=== PATIENT | male | born 1965 | race Caucasian/White ===

== ENCOUNTER → 2024-06-26 13:10 | Outpatient (REF) | payer OTHER, SELFPAY | LOC: RAD 13:10 | PROVIDERS: ATTENDING PHYSICIAN Nurse Practitioner; FAMILY PHYSICIAN Nurse Practitioner | DX: R10.30 Lower abdominal pain, unspecified (principal) | CPT/HCPCS: 74177; Q9967 ==

== ENCOUNTER 2025-03-01 09:36 | Emergency (ER) | payer OTHER, SELFPAY ==
[2025-03-01 09:38] VITALS: BP 134/93
--- NOTE | 2025-03-01 11:21 | ED.SKININJ ---
HPI-Injury
General
Chief Complaint: Skin Surface Trauma
Source: patient
Exam Limitations: none
Time Seen by Provider: 03/01/25 10:47
History of Present Illness-Injury
Initial Injury comments:
60-year-old [id number] male presents complaining of crushing injury to right long finger he sustained today. He pinched it between 2 pieces of heavy metal. Last tetanus unknown. He notes the back of the nail came out. He notes a
laceration.
Past History
Past History
ED Past Medical History: None
ED Past Surgical History: None
Social History
Tobacco: Non-smoker
Alcohol: Occasional
Drug: None
Personal:
Living: with family
Employment: Employed
Family History
Family History: CAD
Phy Exam
Physical Exam
Physical Exam:
General: Well-appearing male no acute distress
Musculoskeletal exam: Right long finger tender over the distal portion. The base of the nail is avulsed. There is a laceration measures about 1.5 cm over the volar aspect of the finger without tendon involvement
Course
Orders/Labs/Results
Orders:
Orders
03/01/25 09:41
Finger(s)/Thumb 2 View Rt [CR Finger(s)/thumb Min 2 Vw Rt] Urgent
Comment:
Reason For Exam: crush injury
Indicate Which Finger:: Middle Finger
03/01/25 11:07
Tetanus/Diphth/Acelpertussis [Adacel] 0.5 ml IM .ONCE ONE
Vital Signs
Initial and Last Documented VS:
Initial Vital Signs
Temp Pulse Resp BP Pulse Ox
97.7 F 68 18 134/93 97
03/01/25 09:38 03/01/25 09:38 03/01/25 09:38 03/01/25 09:38 03/01/25 09:38
Last Documented Vital Signs
Temp Pulse Resp BP Pulse Ox
97.7 F 68 18 134/93 97
03/01/25 09:38 03/01/25 09:38 03/01/25 09:38 03/01/25 09:38 03/01/25 11:24
MDM/Problems Addressed
Differential Diagnosis Includes:
Crush injury right long finger. X-rays were personally visualized and are negative for fracture. The nail is avulsed there is a laceration. Digital block was provided at the base of the finger and the finger was soaked with saline and Betadine
*Pulse Oximetry
SaO2: 97
Oxygen Mode of Delivery: Room air
Patient hypoxic: no
*Critical Care Note
Total Time (30-74mins, 75-104mins- exclusive of procedures): Not Applicable
Update Note
Update Note:
After appropriate anesthesia was obtained with a digital block and the finger was soaked with saline and Betadine, the finger was then irrigated copiously with saline. The laceration was closed with 5-0 Prolene sutures in a simple interrupted
fashion. 5 sutures were required to do so. The base of the nail was tucked back into its original position and the finger was wrapped with wrap and splint. He will be advised to follow-up with hand specialist for further evaluation
ED Attending Note
-
Portions of this chart may have been created with voice recognition software.� Occasional wrong word or��sound alike� substitutions may have occurred due to the inherent limitations of voice recognition software.
Discharge Plan
Departure
Patient Disposition: Home (Routine Discharge)
Date of Disposition: 03/01/25
Time of Disposition: 12:00
Patient with high blood pressure during this ER visit?: No
Discharge Problem:
Crush injury to finger
Instructions: Laceration Repair With Stitches (DC)
Prescriptions:
No Action
dicyclomine [Bentyl] 20 MG tablet
20 mg PO Q8 PRN (Reason: cramping) Qty: 9 0RF
Referrals:
Irish Dick CRNP [Family Provider, Family Practice]
Nain Cain MD [Active, Orthopedics]
Activity Restrictions/Additional Instructions:
Have sutures removed in 10 to 14 days. Avoid heavy lifting with this hand. Follow-up with hand specialist. Return if needed otherwise
Interventions
Interventions:
*Risk Screen - Suicide Last Done: 03/01/25 09:38
*General Assessment Last Done: 03/01/25 09:38
*Neglect/Abuse Screening Last Done: 03/01/25 11:45
*ED- Fall Risk Assessment Last Done: 03/01/25 11:45
*ED COVID-19 Vaccine History Last Done: 03/01/25 11:45
*ED Influenza Vaccine History Last Done: 03/01/25 11:45
ED-Skin Assessment Last Done: 03/01/25 11:45
Discharge Date and Time
Print Language: [place] ISLAND[place]
[2025-03-01] MEDS: ADACEL 0.5 ML IM (11:58)
== END 2025-03-01 13:01 | disposition home or self-care (01) ==
LOC: EMR 09:36
PROVIDERS: EMERGENCY PHYSICIAN Emergency Medicine; FAMILY PHYSICIAN Nurse Practitioner
DX: S67.192A Crushing injury of right middle finger, initial encounter (principal); S61.212A Laceration without foreign body of right middle finger without damage to nail, initial encounter; W23.0XXA Caught, crushed, jammed, or pinched between moving objects, initial encounter; Z23 Encounter for immunization
CPT/HCPCS: 12001; 99283; 90471; 73140; 90715

== ENCOUNTER 2025-03-07 05:31 | Emergency (ER) | payer OTHER, SELFPAY ==
[2025-03-07 05:36] VITALS: BP 133/81
[2025-03-07 06:08] LABS: Hematocrit 41.0 % (39.0-52.0); Hemoglobin 13.8 g/dL (13.0-18.0); Mean Corp Hgb Conc. 33.7 g/dL (33.0-37.0); Mean Corpuscular Volume 86.1 fL (80.0-94.0); Nucleated Red Blood Cells % 0 % (-); Platelet Count 157 10^3/uL (130-400); Red Cell Dist. Width 12.6 % (11.5-14.5)
[2025-03-07 06:19] LABS: ALT (SGPT) 17 U/L (0-50); AST (SGOT) 33 U/L (17-59); Albumin 4.3 g/dl (3.5-5.0); Alkaline Phosphatase 54 U/L (38-126); Blood Urea Nitrogen 23 mg/dl (9-20); Calcium 9.0 mg/dl (8.4-10.2); Carbon Dioxide 25 mmol/L (22-30); Chloride 107 mmol/L (98-107); Glucose 118 mg/dl (70-99); Potassium 4.3 mmol/L (3.5-5.1); Sodium 138 mmol/L (135-145); Total Protein 6.9 g/dl (6.3-8.2); eGFR > 60.00
--- NOTE | 2025-03-07 06:36 | ED.GENMED ---
Addendum entered and electronically signed by Marissa Young PA-C 03/10/25 15:14:
Wound abscess positive for few Staph aureus preliminarily, patient is on oral vancomycin, no treatment change required at this point
Original Note:
History of Present Illness
General
Chief Complaint: Skin Problem
Time Seen by Provider: 03/07/25 06:36
History of Present Illness
History of Present Illness:
FOCUSED PAST MEDICAL HISTORY
- Anxiety
REVIEW OF OLD RECORDS
- The patient was seen here on 03/01/2025 after crush injury to the right middle finger and had laceration repair; at that time there is no definite fracture
- CAT scan in June 2024 showed pancolitis related to C. difficile
Note:
CHIEF COMPLAINT(S)
Eruption and possible infection at the site of a previous nail injury.
HISTORY OF PRESENT ILLNESS
The patient is a 60-year-old male who was initially evaluated on the of the month for a nail injury, at which time the wound was cleaned, and the nail was repositioned with no fracture evident on the X-ray. Recently, the patient has observed
the wound erupting at the top, with signs suggestive of infection, prompting his return to the emergency department. The patient expressed concern about potential complications if left unchecked, stating, 'I might be doing something that requires
correction later.' There is visible drainage from the site, though the white blood cell count is normal, which does not exclude the presence of an infection. The patient mentioned plans to follow up with an orthopedic appointment scheduled for the
next week. He also recalled a history of Clostridioides difficile infection, treated possibly with Vancomycin, which influences his hesitance towards current antibiotic therapy.
PAST MEDICAL AND SURGICAL HISTORY
History of Clostridioides difficile infection.
CHRONIC MEDICAL CONDITIONS SIGNIFICANTLY AFFECTING CARE
History of Clostridioides difficile infection impacts the decision concerning antibiotic use.
REVIEW OF SYSTEMS
- Skin: Eruption and possible infection at the site of a previous nail injury.
- Musculoskeletal: Reports a subungual hematoma, no additional swelling.
- Integumentary: Observed drainage from the site.
PHYSICAL EXAM
General: Alert, no acute distress.
Skin: Warm, dry. Redness and signs suggestive of infection noted at the site of the nail injury.
Head: Normocephalic, atraumatic.
Neck: Supple, trachea midline.
Eye, Ears, Nose, Mouth, and Throat: Oral mucosa moist.
Back: Normal range of motion, normal alignment.
Musculoskeletal: At the distal aspect of the right third digit, there is a healing wound with ecchymosis noted diffusely, scant purulence noted, moderately tender, erythema noted, older appearing subungual hematoma, wound edges are irregular with
some skin dehiscence yeah no problem okay yeah
Neurological: Alert and oriented to person, place, time, and situation; no focal neurological deficit observed.
Psychiatric: Cooperative, appropriate mood and affect.
PROBLEM LIST
Acute Problems:
- Eruption and possible infection at the site of a previous nail injury.
- Subungual hematoma.
Chronic Problems:
- History of Clostridioides difficile infection.
PLAN
1. Initiate antibiotic therapy given the suspicion of infection, emphasizing concern about exacerbation of past Clostridioides difficile infection, and consider alternative medications if possible.
2. Consider minor intervention to drain the hematoma if the patient consents, though it appears clotted.
3. Follow up with orthopedic as scheduled to ensure continuity of care and further assessment.
4. Monitor for progression or resolution of symptoms.
DIFFERENTIAL DIAGNOSIS
The Differential Diagnosis includes, in no particular order and is not limited to:
- Soft tissue infection (cellulitis)
- Acute paronychia
- Subungual abscess
- Hematoma of the nail bed
- Osteomyelitis of distal phalanx
- Skin abscess
- Foreign body reaction
- Nail bed laceration
- Traumatic nail dystrophy
- Infected laceration
LABS
- White count 5.6, hemoglobin normal, chemistries unremarkable, lactic 1.0
UPDATE
-SUMMARY OF ENCOUNTER
The 60-year-old male patient returned to the emergency department due to the eruption and possible infection at the site of a previous nail injury. Upon evaluation, redness and drainage were noted, indicative of possible infection. The patient
expressed concerns about the injurys progression and his history with Clostridioides difficile infection previously managed with Vancomycin, raising hesitance towards initiating antibiotics. After reviewing his history and discussing treatment
options, it was agreed to prescribe Vancomycin, given its dual role in managing C. difficile and potential effectiveness for soft tissue infections without increasing C. difficile risk. The patient was counseled to monitor symptoms and adhere to the
follow-up orthopedic appointment.
DISPOSITION
Discharge
PLAN
1. Prescribe Vancomycin for infection management while considering the patients history of Clostridioides difficile.
2. Encourage the patient to monitor for any worsening symptoms and to follow up with his orthopedic doctor as scheduled, or sooner if conditions worsen.
3. Reassure the patient that swelling and irregularities at the injury site should improve over time.
INDEPENDENT REVIEW OF LABS AND INTERPRETATION OF TESTS
My independent review noted a historical CT scan indicating colitis, potentially attributable to a previous Clostridioides difficile infection, but no new labs were ordered or interpreted during this visit.
PATIENT EDUCATION AND COUNSELING
The patient was informed about the nature of the infection, potential impact of history with Clostridioides difficile on treatment choices, and the anticipated healing process of the nail injury. The patient was advised on the benefits of following
up with the child welfare specialist and monitoring symptom progression.
FOLLOW-UP INSTRUCTIONS
The patient should follow up with the child welfare specialist as scheduled and seek earlier consultation should symptoms seem to worsen.
MEDICATION RECONCILIATION
Vancomycin prescribed and sent to [facility] for treating the suspected soft tissue infection and considering the patients history of C. difficile.
MEDICAL DECISION MAKING
Number and Complexity of Problems Addressed: Chronic conditions affecting care include the history of Clostridioides difficile infection. The differential diagnosis includes soft tissue infection (cellulitis), acute paronychia, subungual abscess,
hematoma of the nail bed, osteomyelitis of distal phalanx, skin abscess, foreign body reaction, nail bed laceration, traumatic nail dystrophy, and infected laceration.
Category 1: Tests and Documents Reviewed
Historical CT scan reviewed showing colitis, likely from prior C. difficile infection.
Category 3: Discussion of Management
Decision to prescribe Vancomycin discussed with the patient considering his historical C. difficile infection, prioritizing efficacy and risk management in antibiotic selection.
Risk:
Prescription medication was prescribed due to the infection and consideration of past Clostridioides difficile infection history, making monitoring crucial.
DIAGNOSIS
1. Infection at the site of previous finger injury (Suspected)
2. History of Clostridioides difficile infection (ICD-10: A04.72)
3. Subungual hematoma (ICD-10: L60.8)
PROCEDURE NOTE
I removed all Prolene sutures at the distal aspect of the affected finger
Past History
Past History
ED Past Medical History: None
ED Past Surgical History: None
Social History
Tobacco: Non-smoker
Alcohol: Occasional
Drug: None
Personal:
Living: with family
Employment: Employed
Family History
Family History: CAD
Phy Exam
Physical Exam
Physical Exam:
See HPI
Course
Orders/Labs/Results
Orders:
Orders
03/07/25 05:54
Complete Blood Count/With Diff Urgent
Comprehensive Metabolic Panel Urgent
Lactic Acid Urgent
Blood Culture Urgent
FAWN Source: Blood/Venous
Specimen Description:
03/07/25 06:45
Wound Culture [Wound/Abscess/Other Culture] Urgent
FAWN Source: Finger
Specimen Description: Right
Date Specimen was Collected: 03/07/25
Time Specimen was Collected: 06:44
Abnormal Lab Results
03/07/25
05:54
MPV 11.2 H fL
(7.4-10.4)
Monocytes % 10.5 H %
(1.7-9.3)
BUN 23 H mg/dl
(9-20)
Glucose 118 H mg/dl
(70-99)
03/07/25 05:54
03/07/25 05:54
Vital Signs
Initial and Last Documented VS:
Initial Vital Signs
Temp Pulse Resp BP Pulse Ox
36.4 C 60 20 133/81 99
03/07/25 05:36 03/07/25 05:36 03/07/25 05:36 03/07/25 05:36 03/07/25 05:36
Last Documented Vital Signs
Temp Pulse Resp BP Pulse Ox
36.4 C 60 20 133/81 99
03/07/25 05:36 03/07/25 05:36 03/07/25 05:36 03/07/25 05:36 03/07/25 06:38
*Pulse Oximetry
SaO2: 99
Oxygen Mode of Delivery: Room air
Patient hypoxic: no
*Critical Care Note
Total Time (30-74mins, 75-104mins- exclusive of procedures): Not Applicable
ED Attending Note
-
Portions of this chart may have been created with voice recognition software.� Occasional wrong word or��sound alike� substitutions may have occurred due to the inherent limitations of voice recognition software.
Discharge Plan
Departure
Patient Disposition: Home (Routine Discharge)
Date of Disposition: 03/07/25
Time of Disposition: 07:04
Patient with high blood pressure during this ER visit?: Yes
Discharge Problem:
Infection, wound status post trauma
Instructions: Cellulitis (Skin Infection), Adult (DC), BLOOD PRESSURE
Prescriptions:
New
vancomycin [Vancocin] 125 mg capsule
125 mg PO QID Qty: 28 0RF
No Action
dicyclomine [Bentyl] 20 MG tablet
20 mg PO Q8 PRN (Reason: cramping) Qty: 9 0RF
Activity Restrictions/Additional Instructions:
Given your history of C. difficile, I sent a prescription for vancomycin to your pharmacy that could treat the finger infection and help prevent C. difficile. Your blood work is normal including normal white blood cell count and lactic acid level.
Follow-up with the orthopedist or return here sooner if worsening. I removed all of the stitches.
Interventions
Interventions:
*Risk Screen - Suicide Last Done: 03/07/25 05:36
*General Assessment Last Done: 03/07/25 05:36
*Neglect/Abuse Screening Last Done: 03/07/25 05:36
*ED- Fall Risk Assessment Last Done: 03/07/25 05:36
*ED COVID-19 Vaccine History Last Done: 03/07/25 05:36
*ED Influenza Vaccine History Last Done: 03/07/25 05:36
ED-Skin Assessment Last Done: 03/07/25 06:00
Discharge Date and Time
Print Language: [place] ISLAND[place]
[2025-03-07 07:40] VITALS: BP 130/87
== END 2025-03-07 07:41 | disposition home or self-care (01) ==
LOC: EMR 05:31
PROVIDERS: Emergency Medicine; EMERGENCY PHYSICIAN Emergency Medicine; FAMILY PHYSICIAN Nurse Practitioner
DX: T79.8XXA Other early complications of trauma, initial encounter (principal); W23.0XXA Caught, crushed, jammed, or pinched between moving objects, initial encounter; R03.0 Elevated blood-pressure reading, without diagnosis of hypertension; Z86.19 Personal history of other infectious and parasitic diseases
CPT/HCPCS: 99283; 80053; 83605; 85025; 87040; 87070; 87147; 87186; 87205